=== PATIENT | female | born 1950 | race Caucasian/White ===

== ENCOUNTER 2019-06-07 16:40 | Emergency (ER) | payer MEDICARE, OTHER ==
[~2019-06-07] VITALS: Ht 177.8 cm; Wt 81.8 kg
[2019-06-07] MEDS ORDERED: ZOLP5TAB (17:04)
[2019-06-07] MEDS ORDERED: DULO1CAP6 (17:04)
[2019-06-07] MEDS ORDERED: ACETAMINOPHEN TAB 650MG DOSE (2X325MG) PO ONE (18:30)
--- NOTE | 2019-06-07 18:54 | REPVR ---
PROCEDURE INFORMATION: Exam: CT Maxillofacial Without Contrast Exam date and time: 06/07/2019 6:07 PM Clinical history: 69 years old, female; Pain; Other: Tr; Additional info: Trauma TECHNIQUE: Imaging protocol: Computed tomography images of the face without contrast. Radiation optimization: All CT scans at this facility use at least one of these dose optimization techniques: automated exposure control; mA and/or kV adjustment per patient size (includes targeted exams where dose is matched to clinical indication); or iterative reconstruction. COMPARISON: No relevant prior studies available. FINDINGS: Orbits: Orbits are normal. Globes are unremarkable. Sinuses: Unremarkable. No air-fluid levels. Bones/joints: No acute fracture seen. Disc height loss and spondylosis is mild to moderate at C4-5, mild at C3-4. Moderate degenerative changes at C1-2. Focal, sclerotic lesion in the left mandibular condylar head most likely represents a bone island. Soft tissues: Left frontal scalp soft tissue swelling. IMPRESSION: No facial bone fracture seen. Electronically signed by: Siobhan Salazar On 06/07/2019 18:54:05 PM
--- NOTE | 2019-06-07 19:00 | REPVR ---
PROCEDURE INFORMATION: Exam: CT Cervical Spine Without Contrast Exam date and time: 06/07/2019 6:07 PM Clinical history: 69 years old, female; Neck pain; Additional info: Trauma TECHNIQUE: Imaging protocol: Computed tomography images of the cervical spine without contrast. Radiation optimization: All CT scans at this facility use at least one of these dose optimization techniques: automated exposure control; mA and/or kV adjustment per patient size (includes targeted exams where dose is matched to clinical indication); or iterative reconstruction. COMPARISON: No relevant prior studies available. FINDINGS: Vertebrae: Trace degenerative anterolisthesis of C7 on T1. Slight levoconvex scoliosis. Discs/Spinal canal/Neural foramina: Severe left facet arthropathy at C7-T1. Disc height loss and spondylosis is moderate at C6-7, mild to moderate at C4-5 and C5-6, mild at C3-4. Moderate degenerative changes at C1-2. No severe central spinal canal stenoses. Suspect a component of soft central disc protrusion at C6-7 causing mild to moderate central spinal canal stenosis. Multilevel neural foraminal stenoses due to uncovertebral arthropathy. Soft tissues: Unremarkable. Lungs: Lung apices are normal. Vasculature: Mild calcified plaque at the carotid bifurcations. IMPRESSION: No cervical spine fracture seen. Electronically signed by: Siobhan Salazar On 06/07/2019 19:00:23 PM
[2019-06-07] MEDS ORDERED: CYCL5TAB PO (19:06)
[2019-06-07 19:24] VITALS: BP 130/58
== END 2019-06-07 19:33 | disposition home or self-care (01) ==
LOC: M ED 16:40
DX: S00.83XA Contusion of other part of head, initial encounter (principal); W18.09XA Striking against other object with subsequent fall, initial encounter; Y92.9 Unspecified place or not applicable; Z79.899 Other long term (current) drug therapy

== ENCOUNTER → 2020-09-06 | Outpatient (REF) | payer MEDICARE, OTHER ==
[~2020-09-06] MED LIST: CYCL5TAB PO; DULO1CAP6; ZOLP5TAB
[2020-09-06 17:46] LABS: C REACTIVE PROTEIN QUANTITATIV 1.21 MG/DL (0.00-0.30); CPK CREATINE PHOSPHOKINASE 43 U/L (26-192); IRON (FE) 55 UG/DL (50-170); PHOSPHORUS LEVEL 4.2 MG/DL (2.5-4.9); RHEUMATOID FACTOR QUANT < 10.0 IU/ML (<15.0); VITAMIN B12 LEVEL 471 PG/ML (247-911)
[2020-09-06 17:55] LABS: HEPATITIS B SURFACE ANTIGEN NEGATIVE (NEGATIVE)
[2020-09-06 18:23] LABS: HEPATITIS C VIRUS ABY INDEX 0.5 INDEX (<0.8)
[2020-09-06 19:34] LABS: HEPATITIS B SURFACE ANTIBODY NEGATIVE (POSITIVE)
[2020-09-11 00:07] LABS: ANA (HEP2) Negative (.); CYCLIC CITRULLINATED PEPTIDE 8 units (0-19); HEPATITIS B CORE ANTIBODY IGG Negative (Negative); SSA SJOGRENS A <0.2 AI (0.0-0.9); SSB SJOGRENS B <0.2 AI (0.0-0.9)
== END ==
LOC: M SFHCRHEU 15:38
PROVIDERS: ATTEND Internal Medicine
DX: R76.8 Other specified abnormal immunological findings in serum (principal); M79.7 Fibromyalgia; H04.123 Dry eye syndrome of bilateral lacrimal glands; M25.40 Effusion, unspecified joint; Z79.899 Other long term (current) drug therapy
CPT/HCPCS: 82306; 82550; 82607; 83540; 83735; 84100; 84443; 85652; 86038; 86140; 86200; 86235; 86431; 86704; 86706; 86803; 87340; G0463

== ENCOUNTER → 2020-10-05 | Outpatient (CLI) | payer MEDICARE, OTHER ==
--- NOTE | 2020-10-05 16:03 | REP ---
INDICATION: OSTEOARTHRITIS, JOINT EFFUSION COMPARISON: None. TECHNIQUE: AP, lateral, bilateral oblique views right and left wrists bilaterally. FINDINGS: Relatively symmetric generalized age-related changes are appreciated. Findings include scattered elements of subchondral sclerosis along with minimal symmetric bilateral joint space narrowing at the radiocarpal joint line. No further overt osteoarthritic or inflammatory arthritic changes are appreciated. No evidence for acute or healed injury. IMPRESSION: Relatively mild symmetric age-related changes. <Electronically signed by Mark Lennon > 10/05/20 1600
--- NOTE | 2020-10-05 16:04 | REP ---
INDICATION: OSTEOARTHRITIS, JOINT EFFUSION COMPARISON: None. TECHNIQUE: Frontal view of the pelvis with neutral and frog lateral views of the right and left hip hip. FINDINGS: There is no evidence for acute fracture or dislocation. Relatively symmetric age-related changes to the bilateral hip joints includes increased sclerosis to the acetabular roof with very subtle marginal spurring and minimal joint space narrowing. No further overt osteoarthritic or inflammatory arthritic changes are appreciated. Surrounding soft tissues are normal. IMPRESSION: Minimal symmetric bilateral age-related changes to the bilateral hips. <Electronically signed by Mark Lennon > 10/05/20 [id number]
--- NOTE | 2020-10-05 16:07 | REP ---
INDICATION: OSTEOARTHRITIS, JOINT EFFUSION COMPARISON: None. TECHNIQUE: AP, lateral, bilateral oblique views right and left hand. FINDINGS: Right hand demonstrates moderate osteoarthritic degenerative changes involving the 1st metacarpal phalangeal joint and 1st through 4th interphalangeal joints with subchondral sclerosis, joint space narrowing, and mild marginal spurring. Advanced degenerative changes are identified at the 4th metacarpophalangeal joint which demonstrates subchondral sclerosis marginal spurring and blunted deformity to the metacarpal head with bulky osteophyte. Advanced degenerative changes are also identified at the 5th distal interphalangeal joint which demonstrates subchondral heterogeneous/irregular cystic changes and Gull wing deformity. Left hand demonstrates moderate early advanced osteoarthritic degenerative changes at the 2nd and 3rd distal interphalangeal joints including subchondral sclerosis/heterogeneity and subtle cystic changes along with joint space narrowing and marginal osteophytosis. Mild arthritic changes noted throughout the remainder of the interphalangeal joints and 1st metacarpophalangeal joint. IMPRESSION: Degenerative changes as described above. No acute fracture or dislocation. <Electronically signed by Mark Lennon > 10/05/20 [id number]
--- NOTE | 2020-10-05 16:15 | REP ---
INDICATION: OSTEOARTHRITIS, JOINT EFFUSION COMPARISON: None. TECHNIQUE: AP, lateral, bilateral oblique views right and. FINDINGS: Right foot demonstrates generalized age-related changes along with advanced arthritic change and mild hallux valgus deformity at the 1st metatarsophalangeal joint. Findings include subchondral sclerosis/irregularity, joint space narrowing and osteophytosis. No acute fracture or dislocation. Small calcaneal heel spur noted on lateral radiograph. Left foot demonstrates generalized age-related changes along with mild hallux valgus deformity at the 1st metatarsophalangeal joint with mild subchondral sclerosis. No acute fracture or dislocation. Small calcaneal heel spur noted on lateral radiograph. IMPRESSION: Degenerative changes primarily involving the bilateral 1st MTP joints (right greater than left). <Electronically signed by Mark Lennon > 10/05/20 2170
== END ==
LOC: M WUC 15:18
PROVIDERS: ATTEND Internal Medicine
DX: M25.40 Effusion, unspecified joint (principal); M19.071 Primary osteoarthritis, right ankle and foot; M19.072 Primary osteoarthritis, left ankle and foot; M19.041 Primary osteoarthritis, right hand; M19.042 Primary osteoarthritis, left hand

== ENCOUNTER → 2021-04-10 | Outpatient (CLI) | payer MEDICARE, OTHER ==
[2021-04-10 16:10] LABS: BASO # 0.1 10^3/uL (0.0-0.2); BASO % 0.8 % (0.0-1.0); EOS # 0.2 10^3/uL (0.0-0.5); EOS % 2.5 % (0.0-3.0); HEMATOCRIT 38.2 % (36.0-47.0); HEMOGLOBIN 13.1 g/dl (12.0-15.5); LYMPH # 1.8 10^3/uL (1.5-5.0); LYMPH % 21.5 % (24.0-44.0); MEAN CORPUSCULAR HEMOGLOBIN 33.5 pg (27.0-33.0); MEAN CORPUSCULAR HGB CONC 34.3 g/dl (32.0-36.5); MEAN CORPUSCULAR VOLUME 97.7 fl (80.0-96.0); MONO # 0.8 10^3/uL (0.0-0.8); MONO % 9.4 % (2.0-8.0); NEUTROPHILS # 5.5 10^3/uL (1.5-8.5); NEUTROPHILS % 65.4 % (36.0-66.0); PLATELET COUNT, AUTOMATED 224 10^3/uL (150-450); RED BLOOD COUNT 3.91 10^6/uL (4.00-5.40); WHITE BLOOD COUNT 8.4 10^3/uL (4.0-10.0)
[2021-04-10 16:32] LABS: C REACTIVE PROTEIN QUANTITATIV 3.18 MG/DL (0.00-0.30); RHEUMATOID FACTOR QUANT < 10.0 IU/ML (<15.0); TOTAL PROTEIN 7.3 GM/DL (6.4-8.2)
[2021-04-10 17:24] LABS: ERYTHROCYTE SEDIMENTATION RATE 36 mm/hr (0-30)
== END ==
LOC: M WUC 14:00
PROVIDERS: ATTEND Orthopaedic Surgery
DX: M16.12 Unilateral primary osteoarthritis, left hip (principal)

== ENCOUNTER → 2021-04-25 | Outpatient (REF) | payer MEDICARE, OTHER | LOC: M LAB REF 18:46 | PROVIDERS: ATTEND Otolaryngology | DX: H70.812 Postauricular fistula, left ear (principal) ==

== ENCOUNTER → 2021-07-16 | Outpatient (REF) | payer MEDICARE, OTHER ==
[2021-07-16 16:05] LABS: BASO # 0.1 10^3/uL (0.0-0.2); EOS # 0.1 10^3/uL (0.0-0.5); EOS % 1.2 % (0.0-3.0); HEMATOCRIT 42.1 % (36.0-47.0); HEMOGLOBIN 14.2 g/dl (12.0-15.5); LYMPH # 1.3 10^3/uL (1.5-5.0); LYMPH % 16.1 % (24.0-44.0); MEAN CORPUSCULAR HEMOGLOBIN 32.8 pg (27.0-33.0); MEAN CORPUSCULAR HGB CONC 33.7 g/dl (32.0-36.5); MEAN CORPUSCULAR VOLUME 97.2 fl (80.0-96.0); MONO # 0.7 10^3/uL (0.0-0.8); MONO % 8.9 % (2.0-8.0); NEUTROPHILS # 5.6 10^3/uL (1.5-8.5); NEUTROPHILS % 72.3 % (36.0-66.0); PLATELET COUNT, AUTOMATED 303 10^3/uL (150-450); RED BLOOD COUNT 4.33 10^6/uL (4.00-5.40); WHITE BLOOD COUNT 7.8 10^3/uL (4.0-10.0)
[2021-07-16 16:27] LABS: ERYTHROCYTE SEDIMENTATION RATE 57 mm/hr (0-30)
== END ==
LOC: M WUC 15:38
PROVIDERS: ATTEND Orthopaedic Surgery
DX: M16.12 Unilateral primary osteoarthritis, left hip (principal)

== ENCOUNTER → 2023-03-12 | Outpatient (CLI) | payer MEDICARE, OTHER | LOC: M PAIN 13:00 | PROVIDERS: ATTEND Nurse Practitioner Family | DX: M51.16 Intervertebral disc disorders with radiculopathy, lumbar region (principal); M06.9 Rheumatoid arthritis, unspecified; F32.A Depression, unspecified; F41.9 Anxiety disorder, unspecified; Z79.899 Other long term (current) drug therapy ==

== ENCOUNTER → 2023-09-17 | Outpatient (CLI) | payer MEDICARE, OTHER | LOC: M PAIN 15:30 | PROVIDERS: ATTEND Nurse Practitioner Family | DX: M51.16 Intervertebral disc disorders with radiculopathy, lumbar region (principal); G89.29 Other chronic pain; M06.9 Rheumatoid arthritis, unspecified; F32.A Depression, unspecified; F41.9 Anxiety disorder, unspecified; Z79.899 Other long term (current) drug therapy ==

== ENCOUNTER → 2023-11-13 | Outpatient (CLI) | payer MEDICARE, OTHER ==
[~2023-11-13] MED LIST changes: +ISOVUE-M 300 61% 15ML VIAL As Ordered ONE; +LIDOCAINE 1% SDV 30ML VIAL As Ordered ONE; +diazePAM 5MG TABLET As Ordered ONE; +methylPREDNISolone SUSP 40MG/ML 1ML VIAL (DEPO MEDROL) As Ordered ONE; +oxyCODONE 5MG TAB As Ordered ONE
== END ==
LOC: M PAIN 11:00
PROVIDERS: ATTEND Anesthesiology
DX: M51.16 Intervertebral disc disorders with radiculopathy, lumbar region (principal); Z79.1 Long term (current) use of non-steroidal anti-inflammatories (NSAID); Z79.899 Other long term (current) drug therapy
CPT/HCPCS: 62323; J1010; Q9967

== ENCOUNTER → 2024-02-09 | Outpatient (CLI) | payer MEDICARE, OTHER ==
[~2024-02-09] MED LIST changes: +dexAMETHasone 10MG/1ML VIAL PRES.FREE As Ordered ONE; -methylPREDNISolone SUSP 40MG/ML 1ML VIAL (DEPO MEDROL) As Ordered ONE
== END ==
LOC: M PAIN 12:30
PROVIDERS: ATTEND Anesthesiology
DX: M51.16 Intervertebral disc disorders with radiculopathy, lumbar region (principal); G89.29 Other chronic pain; M06.9 Rheumatoid arthritis, unspecified; F32.A Depression, unspecified; F41.9 Anxiety disorder, unspecified; Z79.899 Other long term (current) drug therapy
CPT/HCPCS: 64483; 64484; J0665; J1100; Q9967

== ENCOUNTER 2024-07-27 17:48 | Emergency (ER) | payer MEDICARE, OTHER ==
[~2024-07-27 17:48] MED LIST changes: -CYCL5TAB PO; +CYCL5TAB4 PO; -ISOVUE-M 300 61% 15ML VIAL As Ordered ONE; -LIDOCAINE 1% SDV 30ML VIAL As Ordered ONE; -dexAMETHasone 10MG/1ML VIAL PRES.FREE As Ordered ONE; -diazePAM 5MG TABLET As Ordered ONE; -oxyCODONE 5MG TAB As Ordered ONE
[2024-07-27 18:22] LABS: BASO # 0.1 10^3/uL (0.0-0.2); BASO % 0.8 % (0.0-1.0); EOS # 0.1 10^3/uL (0.0-0.5); EOS % 1.1 % (0.0-3.0); HEMATOCRIT 38.1 % (36.0-47.0); LYMPH # 2.1 10^3/uL (1.5-5.0); LYMPH % 24.1 % (24.0-44.0); MEAN CORPUSCULAR HEMOGLOBIN 33.6 pg (27.0-33.0); MEAN CORPUSCULAR HGB CONC 34.1 g/dl (32.0-36.5); MEAN CORPUSCULAR VOLUME 98.4 fl (80.0-96.0); MONO # 0.6 10^3/uL (0.0-0.8); MONO % 7.2 % (2.0-8.0); NEUTROPHILS # 5.9 10^3/uL (1.5-8.5); NEUTROPHILS % 66.5 % (36.0-66.0); PLATELET COUNT, AUTOMATED 242 10^3/uL (150-450); RED BLOOD COUNT 3.87 10^6/uL (4.00-5.40); WHITE BLOOD COUNT 8.8 10^3/uL (4.0-10.0)
[2024-07-27 18:52] LABS: CK-MB VALUE MASS < 1.0 NG/ML (<3.6)
[2024-07-27 18:54] LABS: BLOOD UREA NITROGEN 27 MG/DL (9-23); CALCIUM LEVEL 8.8 MG/DL (8.3-10.6); CARBON DIOXIDE LEVEL 26 MMOL/L (20-31); CHLORIDE LEVEL 108 MMOL/L (98-107); CREATININE FOR GFR 1.18 MG/DL (0.55-1.30); GLOMERULAR FILTRATION RATE 47.8 (>39); GLUCOSE, FASTING 99 MG/DL (74-106); POTASSIUM SERUM 4.5 MMOL/L (3.5-5.1); SODIUM LEVEL 143 MMOL/L (136-145)
[2024-07-27 19:12] LABS: CPK CREATINE PHOSPHOKINASE 44 U/L (34-145); MB/CK RELATIVE INDEX 2.27 (< OR =4)
[2024-07-27] MEDS: PERCOCET 5MG/325MG TAB PO ONE (19:25)
[2024-07-27 19:27] VITALS: BP 153/75; TEMP 97.2; O2SAT 98
[2024-07-27] MEDS ORDERED: HYDR-3713 PO (19:30)
== END 2024-07-27 19:59 | disposition home or self-care (01) ==
LOC: EDBD 17:48 → M ED 17:48
DX: M16.11 Unilateral primary osteoarthritis, right hip (principal); M25.552 Pain in left hip; I44.7 Left bundle-branch block, unspecified; I10 Essential (primary) hypertension; I25.2 Old myocardial infarction; M79.7 Fibromyalgia; Z79.1 Long term (current) use of non-steroidal anti-inflammatories (NSAID); Z79.899 Other long term (current) drug therapy

== ENCOUNTER → 2024-09-22 | Outpatient (CLI) | payer MEDICARE, OTHER ==
[~2024-09-22] MED LIST changes: +HYDR-3713 PO
[2024-09-22 16:16] LABS: HEMATOCRIT 41.8 % (36.0-47.0); HEMOGLOBIN 14.1 g/dl (12.0-15.5); MEAN CORPUSCULAR HEMOGLOBIN 32.9 pg (27.0-33.0); MEAN CORPUSCULAR HGB CONC 33.7 g/dl (32.0-36.5); MEAN CORPUSCULAR VOLUME 97.4 fl (80.0-96.0); PLATELET COUNT, AUTOMATED 291 10^3/uL (150-450); RED BLOOD COUNT 4.29 10^6/uL (4.00-5.40)
[2024-09-22 16:23] LABS: ERYTHROCYTE SEDIMENTATION RATE 37 mm/hr (0-30)
[2024-09-22 16:25] LABS: INR 0.98; PROTHROMBIN TIME 13.3 SECONDS (12.5-14.5)
[2024-09-22 16:43] LABS: ALBUMIN 3.4 G/DL (3.2-5.2); BILIRUBIN,TOTAL 1.3 MG/DL (0.3-1.2); CALCIUM LEVEL 9.1 MG/DL (8.3-10.6); CREATININE FOR GFR 1.25 MG/DL (0.55-1.30); GLOMERULAR FILTRATION RATE 44.7 (>39); POTASSIUM SERUM 4.2 MMOL/L (3.5-5.1); TOTAL PROTEIN 7.3 G/DL (5.7-8.2)
== END ==
LOC: M WUC 14:10
PROVIDERS: ATTEND Orthopaedic Surgery
DX: Z01.812 Encounter for preprocedural laboratory examination (principal); M16.12 Unilateral primary osteoarthritis, left hip; Z79.01 Long term (current) use of anticoagulants